=== PATIENT | male | born 1980 | race Caucasian/White ===

== ENCOUNTER → 2016-04-23 | Outpatient (REF) | LOC: WSOH 12:21 | DX: Z11.1 Encounter for screening for respiratory tuberculosis (principal) ==

== ENCOUNTER → 2016-05-09 | Outpatient (REF) | LOC: WSOH 08:32 | DX: Z00.00 Encounter for general adult medical examination without abnormal findings (principal) ==

== ENCOUNTER → 2018-02-25 | Outpatient (CLI) | payer OTHER | LOC: COL.PUL 08:00 | DX: R94.2 Abnormal results of pulmonary function studies (principal); R06.02 Shortness of breath; Z68.25 Body mass index [BMI] 25.0-25.9, adult; Z87.891 Personal history of nicotine dependence ==

== ENCOUNTER → 2018-04-23 | Outpatient (CLI) | payer OTHER | LOC: COL.RAD 08:20 | DX: R91.1 Solitary pulmonary nodule (principal) | CPT/HCPCS: Q9967 ==

== ENCOUNTER → 2018-10-22 | Outpatient (CLI) | payer OTHER | LOC: COL.RAD 13:21 | DX: R91.1 Solitary pulmonary nodule (principal) | CPT/HCPCS: Q9967 ==

== ENCOUNTER → 2019-04-27 | Outpatient (CLI) | payer OTHER | LOC: COL.RAD 09:40 | DX: R91.1 Solitary pulmonary nodule (principal) | CPT/HCPCS: Q9967 ==

== ENCOUNTER 2022-11-12 15:02 | Outpatient (RCR) | payer OTHER | END 2022-11-15 | LOC: WSOH | DX: S01.81XA Laceration without foreign body of other part of head, initial encounter (principal); Y99.0 Civilian activity done for income or pay ==

== ENCOUNTER 2022-11-20 08:02 | Outpatient (RCR) | payer OTHER | END 2022-12-15 | LOC: WSOH | DX: S01.81XD Laceration without foreign body of other part of head, subsequent encounter (principal); Y99.0 Civilian activity done for income or pay; M50.90 Cervical disc disorder, unspecified, unspecified cervical region ==